=== PATIENT | male | born 1995 | race African-American/Black ===

== ENCOUNTER 2020-02-09 11:10 | Emergency (ER) | payer MEDICAID ==
[~2020-02-09] VITALS: Ht 188 cm; Wt 127.0 kg
[~2020-02-09 11:10] MED LIST: IBUPROFEN600 MG ORAL; NKM; OFLOXACIN10 ML OP; ZOFRAN ODT4 MG ORAL
[2020-02-09 11:22] VITALS: BP 128/86
[2020-02-09] MEDS ORDERED: Ketorolac 30mg Inj IM ONE (11:45)
[2020-02-09] MEDS ORDERED: Methocarbamol 750mg tab ORAL ONE (11:45)
[2020-02-09] MEDS ORDERED: LIDODERM700 M1 TOPIC (12:03)
[2020-02-09] MEDS ORDERED: ROBAXIN-750750 MG PO (12:03)
[2020-02-09] MEDS ORDERED: IBUPROFEN600 M1 ORAL (12:03)
[2020-02-09 12:10] VITALS: BP 128/86
--- NOTE | 2020-02-10 08:04 | Emergency Room Report ---
History of Present Illness General Chief Complaint: Pain Source: Patient Present Illness HPI 24-year-old presents with right shoulder pain. Started 4 to 5 days ago. Not improving. Pain is dull, 5 out of 10, radiating down the right arm. Denies neck pain. Denies any fall or injury. No other aggravating relieving factors. Denies any other associated symptoms Allergies: Coded Allergies: No Known Allergies (Unverified , 02/15/16) COVID-19 Screening Contact w/high risk pt: No Experienced COVID-19 symptoms?: No COVID-19 Testing performed [employer]: No Patient History Past Medical History: none Past Surgical History: none Pertinent Family History: none Social History: Denies: smoking, alcohol use, drug use Immunizations: UTD Reviewed Nursing Documentation: PMH: Agreed; PSxH: Agreed Nursing Documentation-PMH Past Medical History: No Stated History Review of Systems All Other Systems: negative except mentioned in HPI Physical Exam Vital Signs Date Time Temp Pulse Resp B/P (MAP) Pulse Ox O2 Delivery O2 Flow Rate FiO2 02/09/20 11:14 99.1 78 16 128/86 (100) 95 Room Air Sp02 EP Interpretation: reviewed, normal General Appearance: no apparent distress, alert, GCS 15, non-toxic Head: normocephalic, atraumatic Eyes: bilateral eye normal inspection, bilateral eye PERRL ENT: hearing grossly normal, normal pharynx, no angioedema, normal voice Neck: full range of motion, supple/symm/no masses Respiratory: chest non-tender, lungs clear, normal breath sounds, speaking full sentences Cardiovascular #1: regular rate, rhythm, no edema Cardiovascular #2: 2+ carotid (R), 2+ carotid (L), 2+ radial (R), 2+ radial (L), 2+ dorsalis pedis (R), 2+ dorsalis pedis (L) Gastrointestinal: normal bowel sounds, non tender, soft, non-distended, no guarding, no rebound Rectal: deferred Genitourinary: normal inspection, no CVA tenderness Musculoskeletal: back normal, normal range of motion, gait/station normal, tender - Tender to palpation right trapezius. Full range of motion to right shoulder. Neurologic: alert, motor strength/tone normal, oriented x3, sensory intact, responsive, speech normal Psychiatric: judgement/insight normal, memory normal, mood/affect normal, no suicidal/homicidal ideation Reflexes: 3+ bicep (R), 3+ bicep (L), 3+ tricep (R), 3+ tricep (L), 3+ knee (R), 3+ knee (L) Lymphatic: no adenopathy Medical Decision Making Diagnostic Impression: Primary Impression: Shoulder strain Qualified Codes: S46.911A - Strain of unspecified muscle, fascia and tendon at shoulder and upper arm level, right arm, initial encounter ER Course Hospital Course 24-year-old male presents with right shoulder pain. No trauma Differential diagnoses include: neck strain, shoulder strain, dislocation/fracture Clinical course Patient placed on stretcher. After initial history and physical exam reveals male in no acute distress. On exam there is no midline neck tenderness or shoulder tenderness. Full range of motion to the shoulder. There is pain over the R trapezius Discussed findings with patient. Pain is muscular. No signs of trauma. Do not believe imaging required. Patient agrees. We will attempt conservative treatment with anti-inflammatories, muscle relaxer, Lidoderm patch. Safe for discharge with close outpatient follow-up. I will provide referrals Diagnosis - shoulder strain Stable and discharged to home with prescription for Motrin, Robaxin, Lidoderm. Followup with PMD. Return to ED if symptoms recur or worsen Last Vital Signs Date Time Temp Pulse Resp B/P (MAP) Pulse Ox O2 Delivery O2 Flow Rate FiO2 02/09/20 12:10 99.1 86 16 128/86 95 Room Air Status: improved Disposition: HOME, SELF-CARE Condition: Stable Scripts Lidocaine Patch* (Lidoderm Patch*) 1 Each Adh..patch 1 PATCH TOPIC DAILY, #7 PATCH 0 Refills Patch(es) may remain in place for up to 12 hours in any 24-hour period. Prov: Otoniel Winters MD 02/09/20 Methocarbamol* (ROBAXIN-750*) 750 Mg Tablet 750 MG PO TID, #21 TAB 0 Refills Prov: Otoniel Winters MD 02/09/20 Ibuprofen* (MOTRIN*) 600 Mg Tablet 600 MG ORAL Q8H PRN for FOR PAIN, #30 TAB 0 Refills Prov: Otoniel Winters MD 02/09/20 Referrals: Dylan Tovar [facility]. [facility] Open 24 hour /7 days a week by Appointment Only [address] [facility] [id number] Patient Instructions: Muscle Strain, [id number] Otoniel Winters MD Feb 10, 2020 08:04
== END 2020-02-09 12:10 | disposition home or self-care (01) ==
LOC: EMR 11:37
DX: S46.911A Strain of unspecified muscle, fascia and tendon at shoulder and upper arm level, right arm, initial encounter (principal); X58.XXXA Exposure to other specified factors, initial encounter; Y93.9 Activity, unspecified; Y92.9 Unspecified place or not applicable
CPT/HCPCS: 96372; J1885; Z7502; 99283